=== PATIENT | female | born 1945 | race Caucasian/White ===

== ENCOUNTER 2019-03-21 16:58 | Inpatient (IN) ==
--- NOTE | 2019-03-21 17:28 | Diag Imaging Result Doc PS360 ---
EXAM: CHEST-1 VIEW 03/21/2019 HISTORY: POSSIBLE SEPSIS TECHNIQUE: Erect AP portable upright at 1716 COMMENT: There is COPD. There is blunting of the left costophrenic angle which has not changed since 07/22/2018 and is presumably due to fibrosis. The lung bases are actually clearer than on the previous study and the heart and pulmonary vascularity are within normal limits. IMPRESSION: No acute disease. Electronically signed by Cayden Olvera 03/21/2019 5:26 PM
[2019-03-21 18:09] LABS: BASO# 0.02 X1000 (0.0-0.2); BASO% 0.2 % (0.0-0.8); EOS# 0.01 X1000 (0.0-0.7); EOS% 0.1 % (0.0-10.0); HEMOGLOBIN 13.9 g/dL (12.0-16.0); IMM GRAN# 0.02 X1000 (0.0-0.04); IMM GRAN% 0.2 % (0.0-0.5); LYMPH# 0.77 X1000 (1.2-3.4); LYMPH% 8.2 % (20.5-51.1); MCH 30.5 PG (27-31); MCHC 30.9 g/dL (33-37); MCV 98.7 FL (81-99); MONO# 0.91 X1000 (0.11-0.59); MONO% 9.7 % (1.7-9.3); MPV 10.9 FL (7.4-10.4); NEUT# 7.66 X1000 (1.4-6.5); NEUT% 81.6 % (42.2-75.2); PLT 174 X1000 (130-400); RBC 4.56 XMIL (4.2-5.4); RDW 14.2 % (11.5-14.5); WBC 9.39 X1000 (4.8-10.8)
[2019-03-21 18:17] LABS: INR 1.08; PROTIME 14.1 Seconds (11.0-16.0)
[2019-03-21 18:18] LABS: PTT 31.9 Seconds (22.3-41.8)
[2019-03-21 18:22] LABS: ALLEN TEST YES; BE 9.1 mmoll (-3.0-3.0); BLOOD TYPE ARTERIAL; HCO3-(ACT) 31.9 mmoll (20.0-26.0); METHB 1.3 % (0.0-1.5); O2(CT) 19.3 mL/dL (15.0-23.0); O2HB 94.5 % (95.0-99.0); PO2(98.6) 91 mmHg (60-100); SAMPLE BLOOD; SAO2 98.2 % (95.0-100.0); THB 14.5 g/dL (11.5-17.4); URINE SOURCE CLEAN CATCH; pH(98.6) 7.36 (7.35-7.45)
[2019-03-21 18:24] LABS: MODALITY CANNULA; PCO2(98.6) 66 mmHg (35-45)
[2019-03-21 18:29] LABS: BILIRUBIN URINE SMALL (NEGATIVE); COLOR YELLOW; GLUCOSE URINE NEGATIVE (NEGATIVE); KETONE URINE TRACE mg/dL (NEGATIVE); TURBIDITY URINE HAZY (CLEAR)
[2019-03-21 18:30] LABS: BLOOD URINE SMALL (NEGATIVE); LEUKOCYTES URINE LARGE (NEGATIVE); NITRITE URINE POSITIVE (NEGATIVE); PROTEIN URINE 100 mg/dL (NEGATIVE); SP GRAVITY URINE 1.029; UROBILINOGEN URINE NORMAL (NORMAL)
[2019-03-21 18:31] LABS: UR EPITHELIAL CELLS <10 /HPF (<10); URINE BACTERIA 4+ /HPF; URINE RBC <10 /HPF (<10); URINE WBC TNTC /HPF (<10)
[2019-03-21] MEDS ORDERED: SOLU-MEDROL IV ONE (18:31)
[2019-03-21] MEDS ORDERED: DUONEB (A & A) INH ONE (18:31)
[2019-03-21] MEDS ORDERED: PULMICORT INH ONE (18:31)
[2019-03-21] MEDS ORDERED: ROCEPHIN 1 GM in NS 50 ML IV ONE (18:32)
--- NOTE | 2019-03-21 18:44 | PROVIDER DOCUMENTATION ---
This chart was entered by Andreina Krueger Scribe, acting as scribe for Tania Orellana MD. HPI-Respiratory General - General Source: patient - History of Present Illness-Resp Quality of Pain: reports: none Severity in ED: reports: mild Onset/Duration: reports: 2 days ago Timing: reports: still present Cough Quality/Degree: reports: moderate, productive cough, sputum Current Respiratory Medication Therapy: Initiated see nurses note Associated Symptoms: reports: cough, fever/chills (fever), muscle/bodyaches, sore throat Similar Symptoms Previously?: Yes Recently seen or treated by another doctor?: No <Tania Orellana - Last Filed: 03/21/19 18:48> <Betsey Ernandez - Last Filed: 03/21/19 20:41> - General Chief Complaint: SEPSIS ALERT - D Stated Complaint: COUGHING,BODYACHES Time Seen by Provider: 03/21/19 17:08 Allergies/Adverse Reactions: Patient Allergies Allergy/AdvReac Type Severity Reaction Status Date / Time Sulfa (Sulfonamide Allergy ITCHING Verified 07/22/18 00:35 Antibiotics) Home Medications: Home Medication List Medication Instructions Recorded Confirmed Last Taken Type Albuterol Sulfate Inhaler 2 puff INH Q6H PRN PRN 03/19/18 03/21/19 07/21/18 History [Ventolin Hfa] Budesonide [Pulmicort] 0.5 mg Q12H PRN 03/19/18 03/21/19 07/21/18 History Levothyroxine [Synthroid] 75 microgm PO DAILY 03/19/18 03/21/19 07/21/18 History ROSUVAstatin [Crestor] 10 mg PO QHS 03/19/18 03/21/19 07/21/18 History Sertraline [Zoloft] 250 mg PO DAILY 03/19/18 03/21/19 07/21/18 History Ergocalciferol (Vitamin D2) 50,000 unit PO DAILY 07/22/18 03/21/19 07/21/18 History [Vitamin D2] Vit C/Dl-E AC/Lut/Copper/Znox 1 each PO DAILY 07/22/18 03/21/19 07/21/18 History [Preservision Softgel] Albuterol 2.5MG/Ipratrop 0.5MG 1 inh INH BID 03/21/19 03/21/19 Unknown History [Duoneb (A & A)] Vit C/Vit E AC/Lut/Copper/Zinc 1 cap PO DAILY 03/21/19 03/21/19 Unknown History [Preservision Lutein Softgel] - History of Present Illness-Resp Nature of Presenting Problem: Patient is a 74 year old female who presents with fever, cough, sore throat and body aches. States symptoms have been present for 2 days. History of COPD. (Tania Orellana) Review of Systems - Adult - REVIEW OF SYSTEMS - ADULT Constitutional: reports: see HPI, fever. denies: chills, fatique Eyes: reports: no symptoms reported Ears, Nose, Mouth & Throat: reports: see HPI, throat pain. denies: ear pain, sinus problem Cardiovascular: reports: no symptoms reported Respiratory: reports: see HPI, cough. denies: shortness of breath, wheezing Gastrointestinal: reports: no symptoms reported Genitourinary: reports: no symptoms reported Musculoskeletal: reports: see HPI, muscle aches. denies: back pain, neck pain Integumentary: reports: no symptoms reported Neurological: reports: no symptoms reported Psychiatric: reports: no symptoms reported Endocrine: reports: no symptoms reported Hematologic/Lymphatic: reports: no symptoms reported Allergic/Immunologic: reports: no symptoms reported All Other Systems: Reviewed and Negative <Tania Orellana - Last Filed: 03/21/19 18:48> Past History - Adult - PAST MEDICAL HISTORY-ADULT Review of Records: reports: Old Records Reviewed, Nursing Assessment Review, Medications Reviewed, Social history reviewed & non-contributory. Major Childhood Illnesses: reports: denies history Cardiovascular: reports: denies history Respiratory: reports: COPD Gastrointestinal: reports: denies history Obstetrical/Gynecological: reports: denies history Genitourinary: reports: denies history Musculoskeletal: reports: denies history Neurological: reports: denies history Psychiatric: reports: depression Endocrine/Immune: reports: thyroid disorder Other Conditions: reports: denies history - PRIOR SURGERIES/PROCEDURES Surgical/Procedure History: reports: reviewed, not pertinent, hysterectomy, back/neck (back) - IMMUNIZATION STATUS Childhood Immunizations: See Nurse Assessment Flu Vaccine: See Nurse Assessment - FAMILY HISTORY Family History: reviewed, not pertinent - SOCIAL HISTORY Smoking: cigarettes (former) Substance Use: denies <EstebanEmekalaly Us - Last Filed: 03/21/19 18:48> Physical Exam-General - PHYSICAL EXAM-ADULT Initial Vital Signs Reviewed: Yes - CONSTITUTIONAL General Appearance: alert, mild distress, thin. negative: lethargic - HEAD, EARS, NOSE, MOUTH & THROAT HENMT: normocephalic/atraumatic, moist mucous membranes. negative: angioedema - RESPIRATORY Respiratory: chest non-tender, decreased breath sounds (bilateral), crackles, rhonchi - CARDIOVASCULAR Cardiovascular: normal peripheral pulses, tachycardia. negative: systolic murmur - GASTROINTESTINAL (ABDOMEN) Abdominal Exam: normal bowel sounds, non tender, soft. negative: guarding, rebound - SKIN Integumentary: normal color, normal turgor, warm/dry. negative: diaphoresis, pallor - NEUROLOGIC Neurologic: grossly normal. negative: aphasia, facial droop - PSYCHIATRIC Psych/Mental Status: normal mood/affect, oriented x 3. negative: anxious <EstebanTania Us - Last Filed: 03/21/19 18:48> Progress - PLAN OF CARE/RESULTS Result Diagrams: 03/21/19 17:30 03/21/19 17:30 - XRAY 1 XRAY Study: Chest Impression: See EMR Report ( EXAM: CHEST-1 VIEW 03/21/2019 HISTORY: POSSIBLE S EPSIS TECHNIQUE: Erect AP portable upright at 1716 COMMENT: There is COPD. There is blunting of the left costophrenic angle which has not changed since 07/22/2018 and is presumably due to fibrosis. The lung bases are actually clearer than on the previous study and the heart and pulmonary vascularity are within normal limits. IMPRESSION: No acute disease. Electronically signed by Cayden Olvera 03/21/2019 5:26 PM 03/21/19 1726 Interpreting Physician: Cayden Olvera MD Dictated Date/Time: 03/21/19 1725 cc: Tania Orellana MD; Cate Laughlin MD) - CHANGE OF SHIFT REPORT (ED Provider) 1 Report Given and Care Transferred to:: DR ERNANDEZ Time of Transfer: 19:00 Items Pending: Other (HOSPITALIST TO CALL TO ADMIT) <EstebanTania Us - Last Filed: 03/21/19 18:48> - PLAN OF CARE/RESULTS Result Diagrams: 03/21/19 17:30 03/21/19 17:30 - CONSULTS/PCP/HOSPITALIST Notification #1 *Consult/PCP/Hospitalist*: d/w Dr Esposito Time Discussed: 20:36 Consult Disposition: Will see in ED, Admit <Betsey ErnandezJuan Carlos - Last Filed: 03/21/19 20:41> - PLAN OF CARE/RESULTS Progress/Plan/Lab Results: Vital Signs - 8 hr 03/21/19 17:03 03/21/19 18:40 Temperature 99.1 F Pulse Rate 99 H 88 Respiratory Rate 22 22 Blood Pressure 124/63 O2 Sat by Pulse Oximetry 87 L 96 Laboratory Results - last 24 hr 03/21/19 03/21/19 03/21/19 17:30 17:30 17:30 WBC 9.39 RBC 4.56 Hgb 13.9 Hct 45.0 MCV 98.7 MCH 30.5 MCHC 30.9 L RDW Std Deviation 14.2 Plt Count 174 MPV 10.9 H Immature Gran % (Auto) 0.2 Neut % (Auto) 81.6 H Lymph % (Auto) 8.2 L [place] % (Auto) 9.7 H Eos % (Auto) 0.1 Baso % (Auto) 0.2 Immature Gran # (Auto) 0.02 Neut # (Auto) 7.66 H Lymph # (Auto) 0.77 L [place] # (Auto) 0.91 H Eos # (Auto) 0.01 Baso # (Auto) 0.02 PT INR PTT (Actin FS) Specimen Type Sample Site pH pCO2 pO2 HCO3 Base Excess Oxyhemoglobin ABG O2 Sat (Calculated) ABG O2 Saturation ABG Carboxyhemoglobin ABG Methemoglobin Kevon Test A-a O2 Difference Total Hemoglobin Lactate Liter Flow Blood Gas Modality FiO2 % Sodium 139 Potassium 3.5 Chloride 95 L Carbon Dioxide 30 Anion Gap 14 BUN 20 Creatinine 0.9 Estimated GFR/1.73 m2 > 60 BUN/Creatinine Ratio 22 Glucose 105 H Calculated Osmolality 281 Calcium 8.5 L Total Bilirubin 0.41 AST 32 H ALT 14 Alkaline Phosphatase 102 Creatine Kinase 525 H Creatine Kinase Index 0.8 CK-MB (CK-2) 4.28 Troponin T Total Protein 6.4 Albumin 3.9 Globulin 2.5 Albumin/Globulin Ratio 1.6 Plasma Lactate 0.9 Urine Source Urine Color Urine Turbidity Urine pH Ur Specific [place] Urine Protein Ur Glucose (Stick) Ur Ketones (Stick) Urine Blood Urine Nitrite Urine Bilirubin Urobilinogen Dipstick Urine Leukocytes Urine WBC (Auto) Urine RBC (Auto) U Epithel Cells (Auto) Urine Bacteria (Auto) 03/21/19 03/21/19 03/21/19 17:30 17:30 18:07 WBC RBC Hgb Hct MCV MCH MCHC RDW Std Deviation Plt Count MPV Immature Gran % (Auto) Neut % (Auto) Lymph % (Auto) [place] % (Auto) Eos % (Auto) Baso % (Auto) Immature Gran # (Auto) Neut # (Auto) Lymph # (Auto) [place] # (Auto) Eos # (Auto) Baso # (Auto) PT 14.1 INR 1.08 PTT (Actin FS) 31.9 Specimen Type ARTERIAL Sample Site R RADIAL pH 7.36 pCO2 66 H* pO2 91 HCO3 31.9 H Base Excess 9.1 H Oxyhemoglobin 94.5 L ABG O2 Sat (Calculated) 19.3 ABG O2 Saturation 98.2 ABG Carboxyhemoglobin 2.40 ABG Methemoglobin 1.3 Kevon Test YES A-a O2 Difference 83.0 Total Hemoglobin 14.5 Lactate 0.80 Liter Flow 4.0 Blood Gas Modality CANNULA FiO2 % 36.0 Sodium Potassium Chloride Carbon Dioxide Anion Gap BUN Creatinine Estimated GFR/1.73 m2 BUN/Creatinine Ratio Glucose Calculated Osmolality Calcium Total Bilirubin AST ALT Alkaline Phosphatase Creatine Kinase Creatine Kinase Index CK-MB (CK-2) Troponin T < 0.010 Total Protein Albumin Globulin Albumin/Globulin Ratio Plasma Lactate Urine Source Urine Color Urine Turbidity Urine pH Ur Specific [place] Urine Protein Ur Glucose (Stick) Ur Ketones (Stick) Urine Blood Urine Nitrite Urine Bilirubin Urobilinogen Dipstick Urine Leukocytes Urine WBC (Auto) Urine RBC (Auto) U Epithel Cells (Auto) Urine Bacteria (Auto) 03/21/19 03/21/19 18:07 20:09 WBC RBC Hgb Hct MCV MCH MCHC RDW Std Deviation Plt Count MPV Immature Gran % (Auto) Neut % (Auto) Lymph % (Auto) [place] % (Auto) Eos % (Auto) Baso % (Auto) Immature Gran # (Auto) Neut # (Auto) Lymph # (Auto) [place] # (Auto) Eos # (Auto) Baso # (Auto) PT INR PTT (Actin FS) Specimen Type Sample Site pH pCO2 pO2 HCO3 Base Excess Oxyhemoglobin ABG O2 Sat (Calculated) ABG O2 Saturation ABG Carboxyhemoglobin ABG Methemoglobin Kevon Test A-a O2 Difference Total Hemoglobin Lactate Liter Flow Blood Gas Modality FiO2 % Sodium Potassium Chloride Carbon Dioxide Anion Gap BUN Creatinine Estimated GFR/1.73 m2 BUN/Creatinine Ratio Glucose Calculated Osmolality Calcium Total Bilirubin AST ALT Alkaline Phosphatase Creatine Kinase Creatine Kinase Index CK-MB (CK-2) Troponin T Total Protein Albumin Globulin Albumin/Globulin Ratio Plasma Lactate 0.6 Urine Source CLEAN CATCH Urine Color YELLOW Urine Turbidity HAZY Urine pH 6.0 Ur Specific [place] 1.029 Urine Protein 100 A Ur Glucose (Stick) NEGATIVE Ur Ketones (Stick) TRACE A Urine Blood SMALL A Urine Nitrite POSITIVE A Urine Bilirubin SMALL A Urobilinogen Dipstick NORMAL Urine Leukocytes LARGE A Urine WBC (Auto) TNTC A Urine RBC (Auto) <10 U Epithel Cells (Auto) <10 Urine Bacteria (Auto) 4+ Orders Category Date Time Status Cardiac Monitoring DIRECTED Care 03/21/19 17:06 Active IV Insertion ORDERED Care 03/21/19 17:06 Completed Notify MD of + Sepsis Screen NOW Care 03/21/19 17:06 Active Notify Physician As Ordered Care 03/21/19 17:06 Active Notify Physician As Ordered Care 03/21/19 17:25 Active Regular Diet Diet 03/21/19 19:13 Active CHEST-1 VIEW [RAD] Stat Exams 03/21/19 17:06 Completed ABG [RESP] Routine Lab 03/21/19 18:07 Completed BLOOD CULTURE [BLDCUL] Stat Lab 03/21/19 17:30 Results CBC WITH DIFF [HEME] Stat Lab 03/21/19 17:30 Completed CK PROFILE [SP CHEM] Stat Lab 03/21/19 17:30 Completed COMPREHENSIVE METABOLIC PANEL [CHEM] Stat Lab 03/21/19 17:30 Completed LACTATE, PLASMA [CHEM] Lab 03/21/19 17:30 Completed LACTATE, PLASMA [CHEM] Lab 03/21/19 20:09 Completed LACTATE, PLASMA [CHEM] Lab 03/21/19 23:15 Uncollected PROTIME WITH INR [COAG] Stat Lab 03/21/19 17:30 Completed PTT [COAG] Stat Lab 03/21/19 17:30 Completed TROPONIN T Stat Lab 03/21/19 17:30 Completed URINALYSIS W/POSS RFLX CULT [URINALYSIS] Stat Lab 03/21/19 18:07 Completed URINE CULTURE [RM] Routine Lab 03/21/19 18:45 Received Albuterol 2.5MG/Ipratrop 0.5MG [Duoneb (A & A)] Med 03/21/19 18:31 Disc ontinued 3 ml INH NOW ONE Budesonide [Pulmicort] Med 03/21/19 18:31 Discontinued 0.5 mg INH NOW ONE CefTRIAXONE [Rocephin] 1 gm Med 03/21/19 18:32 Discontinued 0.9% Sodium Chloride Inj [Ns] 50 ml IV NOW Methylprednisolone Sod Succ [Solu-Medrol] Med 03/21/19 18:31 Discontinued 125 mg IV NOW ONE Aerosol Treatments Routine Oth 03/21/19 18:31 Completed Aerosol Treatments Routine Oth 03/21/19 18:31 Completed Aerosol Treatments Stat Oth 03/21/19 18:31 Completed Aerosol Treatments Stat Oth 03/21/19 18:31 Completed Oxygen Device Stat Oth 03/21/19 17:06 Completed Oxygen Device Stat Oth 03/21/19 17:25 Completed Departure - Departure Date of Disposition Decision: 03/21/19 - Critical Care Note This patient required my direct & personal management of CC.: No <EstebanTanialaly Us - Last Filed: 03/21/19 18:48> - Departure Time of Disposition Decision: 20:39 Certified Medical Emergency: Emergent <Betsey Ernandez - Last Filed: 03/21/19 20:41> - Departure DIAGNOSIS: COPD (chronic obstructive pulmonary disease), SOB (shortness of breath) Disposition: ADMITTED INPATIENT 09 Condition: Stable Additional Instructions: ED Follow Up Instructions: You have been treated by a care provider in the Emergency Department. These instructions are being provided to you so you can have an understanding of how to care for yourself upon discharge. Upon discharge from the Emergency Department, you are responsible for making arrangements for follow-up care by a physician of your choice. Take all prescribed medications as directed. Return to the Emergency Department immediately for any new or worsening symptoms. You may call the Physician Referral phone number at [phone] to obtain a list of Physicians who are taking new patients. Referrals and Follow-Ups: Cate Laughlin MD [Primary Care Provider] - Discharge Education: Chronic Obstructive Pulmonary Disease, [id number] Attestation - Physician/ AMY Attestation Patient care was provided by Advanced Practice Provider:: No The physician spent face to face time with patient:: Yes Advanced Practice Provider documentation review:: Supervising physician onsite and consulted in the evaluation and care of this patient. The physician did have a face to face encounter with the patient. <Tania Orellana - Last Filed: 03/21/19 18:48> - Physician/ AMY Attestation Patient care was provided by Advanced Practice Provider:: Yes Advanced Practice Provider documentation review:: The Mid-level provider documentation, treatment plan and medical decision making was reviewed by the physician who agrees with all treatment and medical decision making by the MLP. <Betsey Ernandez - Last Filed: 03/21/19 20:41> This chart was documented by the indicated scribe, (Andreina Krueger Scribe) and accurately reflects the services I performed and decisions made by Esteban quezada Mai Huu, MD, as attested by the provider's signature.
[2019-03-21 18:45] LABS: AGAP 14; ALB/GLOB RATIO 1.6; ALBUMIN 3.9 g/dL (3.5-5.0); ALKALINE PHOSPHATASE 102 U/L (32-104); BUN 20 mg/dL (8-22); CALCIUM 8.5 mg/dL (8.8-10.2); CHLORIDE 95 mmol/L (98-107); COSMO 281; CREATININE 0.9 mg/dL (0.5-0.9); ESTIMATED GFR > 60; GLUCOSE 105 mg/dL (70-104); GOT 32 U/L (10-30); GPT 14 U/L (10-36); POTASSIUM 3.5 mmol/L (3.5-5.1); SODIUM 139 mmol/L (136-145); TCO2 30 mmol/L (25-35); TOTAL BILIRUBIN 0.41 mg/dL (0.20-1.00); TOTAL PROTEIN 6.4 g/dL (6.3-8.3)
[2019-03-21 18:50] LABS: CK PROFILE 525 U/L (24-173)
[2019-03-21 19:04] LABS: CK INDEX 0.8 (0.0-2.5); CK-MB 4.28 ng/mL (0.0-5.0)
--- NOTE | 2019-03-21 21:57 | HISTORY AND PHYSICAL ---
REASON FOR ADMISSION: A 2-week history of worsening shortness of breath and cough. HISTORY OF PRESENT ILLNESS: Ms. Dorothy Raymond is a 74-year-old woman, with past medical history of COPD, hyperlipidemia, hypothyroidism, who comes in today complaining of worsening 2 week history of shortness of breath, initially with exertion, but currently over the last 1 week at rest. Her cough is nonproductive, but states that she is also having fever and chills subjective over the last few days. No leg swelling, PND, orthopnea. She denies any or GI complaints. REVIEW OF SYSTEMS: Negative for any chest pain, any palpitation, or anginal-type symptoms. Positive findings noted as noted as above. No recent exposure to any antibiotics. ALLERGIES: Sulfa. HOME MEDICATIONS: She is on: 1. Crestor 10 mg at bedtime. 2. DuoNeb b.i.d. 3. Nadir vitamin tablets once daily. 4. Pulmicort 0.5 mg q.12 p.r.n. 5. Synthroid 75 mcg daily. 6. Ventolin 2 puffs q.6. 7. Vitamin D 50,000 units weekly. 8. Zoloft 50 mg daily. SURGICAL HISTORY: 1. Hysterectomy. 2. Bladder sling surgery. 3. Basal cell excision. 4. Carpal tunnel surgery. 5. Back surgery. SOCIAL HISTORY: Former smoker, but currently does not smoke, drink, or use drugs. FAMILY HISTORY: Notable for heart disease, stroke, type 2 diabetes, lung cancer. LAB WORK: Patient's chest film shows no acute infiltrate. White count 5000, hemoglobin and hematocrit 13 and 45, platelets 174,000, 81% neutrophils. Potassium 3.5. AST 32, ALT 14. CK 525. Troponins negative. Lactate is normal. PT and PTT is normal. Urinalysis: 4+ bacteria, too numerous to count WBCs. PH 7.37, pCO2 66, pO2 91. This is on 4 L, although patient states he uses 2 L at home. PHYSICAL EXAMINATION: VITAL SIGNS: Blood pressure is 124/64, heart rate 80, respirations 22, temperature is 99.1 degrees. She is 96% on 4 L. GENERAL: She is a thin, elderly woman, not in acute distress. She is awake, alert and oriented x3. Normal mood and affect. HEAD: Normocephalic, atraumatic. EYES: PERRL. EOMI. Anicteric. Not pale. ENT: Positive for mild xerostomia, but no exudates or oral erythema. NECK: Supple. No JVD or carotid bruit. No thyromegaly. No cervical or supraclavicular lymph nodes. CHEST: Decreased entry in both lung keys with noticeable right basilar crepitations. CARDIOVASCULAR: First and second sounds heard. No murmur, gallop, or rub. Rhythm is regular. ABDOMEN: Full, soft, nontender. No megaly. Bowel sounds are normal. RECTAL: Deferred at this time. EXTREMITIES: Patient has good distal pulse volume, regular and symmetrical. No edema, clubbing or cyanosis. NEUROLOGIC: No gross focal deficits. SKIN: Intact. No breakdown, lesion, or erythema. Skin exam is grossly normal. ASSESSMENT: 1. Chronic obstructive pulmonary disease exacerbation with possible right lower lobe pneumonia. 2. Acute on chronic respiratory failure. 3. Hyperlipidemia. 4. Hypothyroidism. 5. Asymptomatic bacteriuria. PLAN: 1. Will start patient empirically on Zithromax and Rocephin pending noncontrast CT scan to rule out right lower lobe pneumonia. 2. Start patient on moderate doses of steroids, short action bronchodilators, and long-acting bronchodilators, and expectorants will also be started. 3. Reviewed patient's home medications and made certain adjustments to them. 4. Patient will have deep venous thrombosis prophylaxis amongst other things. 5. Titrate downward the home oxygen as long as long oxygen saturation is 90 or greater. cc: MD Cate De Souza MD
[2019-03-21] MEDS ORDERED: ZOFRAN IV PRN (22:34)
[2019-03-21] MEDS: DUONEB (A & A) INH SCH (23:03)
[2019-03-21 23:23] LABS: BASO# 0.01 X1000 (0.0-0.2); BASO% 0.1 % (0.0-0.8); HEMATOCRIT 44.4 % (37.0-47.0); HEMOGLOBIN 13.6 g/dL (12.0-16.0); LYMPH# 0.42 X1000 (1.2-3.4); LYMPH% 4.4 % (20.5-51.1); MCH 30.8 PG (27-31); MCHC 30.6 g/dL (33-37); MCV 100.5 FL (81-99); MONO# 0.13 X1000 (0.11-0.59); MONO% 1.4 % (1.7-9.3); MPV 10.6 FL (7.4-10.4); NEUT# 8.99 X1000 (1.4-6.5); NEUT% 94.1 % (42.2-75.2); PLT 169 X1000 (130-400); RBC 4.42 XMIL (4.2-5.4); RDW 14.1 % (11.5-14.5); WBC 9.55 X1000 (4.8-10.8)
[2019-03-21] MEDS: SOLU-MEDROL IV SCH (23:37)
[2019-03-21] MEDS: ROCEPHIN 1 GM in NS 50 ML IV SCH (23:38)
[2019-03-21] MEDS: LOVENOX SUBQ SCH (23:38)
[2019-03-21] MEDS: MUCINEX PO SCH (23:45)
[2019-03-22 00:06] LABS: AGAP 12; ALB/GLOB RATIO 1.7; ALBUMIN 3.8 g/dL (3.5-5.0); ALKALINE PHOSPHATASE 99 U/L (32-104); BUN 20 mg/dL (8-22); CALCIUM 8.4 mg/dL (8.8-10.2); CHLORIDE 96 mmol/L (98-107); CK PROFILE 430 U/L (24-173); COSMO 288; CREATININE 0.8 mg/dL (0.5-0.9); ESTIMATED GFR > 60; GLUCOSE 204 mg/dL (70-104); GOT 31 U/L (10-30); GPT 14 U/L (10-36); POTASSIUM 3.7 mmol/L (3.5-5.1); SODIUM 140 mmol/L (136-145); TCO2 32 mmol/L (25-35); TOTAL BILIRUBIN 0.19 mg/dL (0.20-1.00); TOTAL PROTEIN 6.1 g/dL (6.3-8.3)
[2019-03-22 00:24] LABS: CK INDEX 0.9 (0.0-2.5); CK-MB 3.78 ng/mL (0.0-5.0)
[2019-03-22] MEDS: DUONEB (A & A) INH SCH ×6 (03:22→23:09)
[2019-03-22 05:32] LABS: AGAP 13; BUN 19 mg/dL (8-22); CALCIUM 9.2 mg/dL (8.8-10.2); CHLORIDE 95 mmol/L (98-107); COSMO 284; CREATININE 0.7 mg/dL (0.5-0.9); ESTIMATED GFR > 60; GLUCOSE 175 mg/dL (70-104); POTASSIUM 4.1 mmol/L (3.5-5.1); SODIUM 139 mmol/L (136-145); TCO2 31 mmol/L (25-35)
--- NOTE | 2019-03-22 05:52 | Diag Imaging Result Doc PS360 ---
EXAM: CT THORAX W/O CONTRAST HISTORY: Probable RLL PNA TECHNIQUE: CT chest without contrast COMPARISON: 02/11/2015 FINDINGS: No pleural effusions. Tiny pericardial effusion. No aortic aneurysm. Moderate atherosclerosis. There calcified mediastinal and right hilar lymph nodes with scattered granuloma. Mildly prominent noncalcified precarinal lymph nodes. Moderate emphysematous changes. Atelectasis inferiorly in the lower lobes, right greater than left. Questionable tiny infiltrates in the right lower lobe. IMPRESSION: 1.Emphysema 2.With basilar atelectasis 3.Possible small infiltrates in the right lower lobe 4.Tiny pericardial effusion 5.There is evidence of a prior granulomatous infection 6.A preliminary report was given at 11:41 PM on 03/21/2019 This exam was performed using automated exposure control, adjustment of mA or kV according to patient size, and/or use of iterative reconstruction technique. Electronically signed by Jose F Prabhakar 03/22/2019 5:50 AM
[2019-03-22] MEDS: SYNTHROID PO SCH (06:21)
[2019-03-22] MEDS: SOLU-MEDROL IV SCH ×3 (09:05→21:09)
[2019-03-22] MEDS: ZITHROMAX PO SCH (09:21)
[2019-03-22] MEDS: ZOLOFT PO SCH (09:21)
[2019-03-22] MEDS: MUCINEX PO SCH ×2 (09:21→21:08)
[2019-03-22] MEDS: BROVANA NEB INH SCH ×3 (09:51→20:26)
--- NOTE | 2019-03-22 12:57 | PROGRESS NOTE ---
DATE: 03/22/2019 ADDENDUM: Advanced directives have been discussed with the patient and the family member at the bedside. After a 15 to 18 minute discussion, the patient has decided to be Do Not Resuscitate level 1. This has been placed already in the chart by me. cc: Carlos Bosch MD
--- NOTE | 2019-03-22 13:11 | PROGRESS NOTE ---
DATE: 03/22/2019 SUBJECTIVE: The patient feels a bit better but she is still having shortness of breath. She is on home O2 for chronic hypoxemic respiratory failure. She came in with COPD exacerbation, right lower lung pneumonia. Her COPD seems to be quite advanced, she stopped smoking in 1994. 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 Apparently 2 weeks ago, she started having some runny nose and cough, now she has been having some chills and subjective fever. As per the daughter, she has been losing weight, about 10 pounds in the past 2 months, she does have severe protein calorie malnutrition. OBJECTIVE: Vital Signs: Temperature 97.9 degrees, pulse 65, respiratory rate 21, blood pressure 122/70, oxygen saturation 96 on 3 L of nasal cannula. HEENT: Head normocephalic, no trauma. PERRLA. Neck: Supple. No JVD. No masses. Central trachea. Chest: Decreased breath sounds globally with right basilar crepitus/rhonchi and expiratory wheezing. Abdomen: Soft, nontender, nondistended. No hepatosplenomegaly. Extremities: No edema, no clubbing, no cyanosis. Decreased muscle mass. Neurological: The patient is alert, she is oriented x3. No focal deficits. LABORATORY DATA: Sodium 139, potassium 4.1, chloride 95, bicarbonate 31, BUN 19, creatinine 0.7, glucose 175, calcium 9.2. ASSESSMENT AND PLAN: 1. Chronic obstructive pulmonary disease exacerbation. Continue with the same management. She has been placed on steroids, breathing treatment and antibiotics, oxygen supplementation. We will continue to monitor. 2. Acute on chronic hypoxemic and hypercarbic respiratory failure. Aware. She is on home O2 I believe around 3 L. We will monitor. 3. Right lower lobe pneumonia. Continue with antibiotics at this moment. 4. Hyperlipidemia. Aware. Continue with same management. 5. Hypothyroidism. Continue with same treatment. 6. Asymptomatic bacteriuria. We will monitor. 7. Severe protein calorie malnutrition. Continue with the same diet. cc: Carlos Bosch MD
[2019-03-22] MEDS: CRESTOR PO SCH (21:08)
[2019-03-22] MEDS: LOVENOX SUBQ SCH (21:09)
[2019-03-22] MEDS: ROCEPHIN 1 GM in NS 50 ML IV SCH (22:49)
[2019-03-23] MEDS: DUONEB (A & A) INH SCH ×5 (03:28→23:29)
[2019-03-23 05:22] LABS: HEMATOCRIT 40.9 % (37.0-47.0); HEMOGLOBIN 12.5 g/dL (12.0-16.0); LYMPH# 0.88 X1000 (1.2-3.4); LYMPH% 10.2 % (20.5-51.1); MCH 30.6 PG (27-31); MCHC 30.6 g/dL (33-37); MONO# 0.62 X1000 (0.11-0.59); MONO% 7.2 % (1.7-9.3); MPV 10.8 FL (7.4-10.4); NEUT# 7.12 X1000 (1.4-6.5); NEUT% 82.6 % (42.2-75.2); PLT 182 X1000 (130-400); RBC 4.09 XMIL (4.2-5.4); RDW 13.7 % (11.5-14.5); WBC 8.62 X1000 (4.8-10.8)
[2019-03-23 05:47] LABS: AGAP 8; BUN 14 mg/dL (8-22); CALCIUM 9.3 mg/dL (8.8-10.2); CHLORIDE 98 mmol/L (98-107); COSMO 283; CREATININE 0.7 mg/dL (0.5-0.9); ESTIMATED GFR > 60; GLUCOSE 122 mg/dL (70-104); POTASSIUM 3.9 mmol/L (3.5-5.1); SODIUM 141 mmol/L (136-145); TCO2 35 mmol/L (25-35)
[2019-03-23] MEDS: LOVENOX SUBQ SCH ×2 (05:54→23:09)
[2019-03-23] MEDS: SOLU-MEDROL IV SCH ×3 (05:55→23:09)
[2019-03-23] MEDS: SYNTHROID PO SCH ×2 (05:56→08:37)
[2019-03-23] MEDS: ZOLOFT PO SCH (09:55)
[2019-03-23] MEDS: MUCINEX PO SCH ×2 (09:55→22:05)
[2019-03-23] MEDS: ZITHROMAX PO SCH (09:55)
[2019-03-23] MEDS: BROVANA NEB INH SCH ×2 (11:26→19:34)
--- NOTE | 2019-03-23 16:18 | PROGRESS NOTE ---
DATE: 03/23/2019 SUBJECTIVE: The patient feels a bit better compared with yesterday. She is still wheezing, so I will continue with the steroids, she has a positive urine culture and blood culture, urine culture showed Klebsiella pneumonia. Blood culture x2 showed gram-negative rods. She has been placed on ceftriaxone and azithromycin, and she seems to be doing good. OBJECTIVE: Vital Signs: Temperature 97.6 degrees, pulse 77, respiratory rate 14, blood pressure 126/58, oxygen saturation 98 on 3 L of nasal cannula. HEENT: Head normocephalic, no trauma, PERRLA. Neck: Supple. No JVD. No masses. Central trachea. Chest: Coarse breath sounds bilaterally with end-expiratory wheezing. Decreased breath sounds bilaterally as well. Prolonged expiratory phase. Abdomen: Soft, nontender, nondistended. No hepatosplenomegaly. Extremities: No edema, no clubbing, no cyanosis. Neurological: The patient is alert. She is oriented x3. No focal deficits. LABORATORY: WBC 8.6, hemoglobin 12.5, hematocrit 40.9, platelets 182,000, sodium 141, potassium 3.9, chloride 98, bicarbonate 35, BUN 14, creatinine 0.9, glucose 122, calcium 9.3. ASSESSMENT AND PLAN: 1. COPD exacerbation. Continue with same management. She has been placed on steroids, breathing treatment, antibiotics, O2 supplementation. Continue to monitor. 2. Bacteremia with gram-negative rods, she is not having fever or chills. She has been placed on ceftriaxone and azithromycin and probably the ceftriaxone is covering this bug, we will continue with the same management for now since she has been stable and the vital signs are stable as well. 3. Acute on chronic hypoxemic and hypercarbic respiratory failure. Aware. She is on home O2 around 3 L. We will continue to monitor. 4. Right lower lobe pneumonia. Continue with antibiotics at this moment pending sputum culture. 5. Hyperlipidemia aware. 6. Hypothyroidism, continue with same treatment. 7. Asymptomatic bacteriuria and actually is secondary to Klebsiella pneumonia sensitive to cephalosporin. 8. Severe protein calorie malnutrition, as per the daughter she has been losing weight for the past 2 months, around 10 pounds unintentionally. cc: Carlos Bosch MD
[2019-03-23] MEDS: CRESTOR PO SCH (22:05)
[2019-03-23] MEDS: ROCEPHIN 1 GM in NS 50 ML IV SCH (23:09)
[2019-03-24] MEDS: DUONEB (A & A) INH SCH ×4 (03:07→22:40)
[2019-03-24 06:16] LABS: BASO# 0.01 X1000 (0.0-0.2); BASO% 0.1 % (0.0-0.8); HEMATOCRIT 43.3 % (37.0-47.0); HEMOGLOBIN 12.8 g/dL (12.0-16.0); LYMPH# 0.61 X1000 (1.2-3.4); LYMPH% 7.7 % (20.5-51.1); MCH 30.3 PG (27-31); MCHC 29.6 g/dL (33-37); MCV 102.6 FL (81-99); MONO# 0.43 X1000 (0.11-0.59); MONO% 5.4 % (1.7-9.3); MPV 10.4 FL (7.4-10.4); NEUT# 6.87 X1000 (1.4-6.5); NEUT% 86.8 % (42.2-75.2); PLT 196 X1000 (130-400); RBC 4.22 XMIL (4.2-5.4); WBC 7.92 X1000 (4.8-10.8)
[2019-03-24] MEDS: SYNTHROID PO SCH (06:17)
[2019-03-24 06:23] LABS: AGAP 10; BUN 21 mg/dL (8-22); CALCIUM 8.8 mg/dL (8.8-10.2); CHLORIDE 99 mmol/L (98-107); COSMO 290; CREATININE 0.6 mg/dL (0.5-0.9); ESTIMATED GFR > 60; GLUCOSE 138 mg/dL (70-104); POTASSIUM 4.2 mmol/L (3.5-5.1); SODIUM 143 mmol/L (136-145); TCO2 34 mmol/L (25-35)
[2019-03-24] MEDS: BROVANA NEB INH SCH ×2 (09:32→22:40)
[2019-03-24] MEDS: ZOLOFT PO SCH (11:17)
[2019-03-24] MEDS: SOLU-MEDROL IV SCH ×2 (11:17→22:35)
[2019-03-24] MEDS: ZITHROMAX PO SCH (11:17)
[2019-03-24] MEDS: MUCINEX PO SCH ×2 (11:17→21:28)
--- NOTE | 2019-03-24 11:47 | PROGRESS NOTE ---
DATE: 03/24/2019 SUBJECTIVE: As per the patient, she is feeling a bit better. I am still waiting for the sputum culture. I will continue with the steroids. She has a positive culture in the urine and blood that showed Klebsiella pneumonia sensitive to cephalosporin. I will continue with ceftriaxone. I have requested a new blood culture today. I will follow the results. OBJECTIVE: Vital signs: Temperature 98.2 degrees, pulse 86, respiratory rate 16, blood pressure 155/66, oxygen saturation 96% on 2 L of nasal cannula. HEENT: Head normocephalic, no trauma. PERRLA. Neck: Supple. No JVD. No masses. Central trachea. Chest: Coarse breath sounds bilaterally, with end-expiratory wheezing, decreased breath sounds bilaterally. Prolonged expiratory phase and bilateral rhonchi. Abdomen: Soft, nontender, nondistended. No hepatosplenomegaly. Extremities: No edema. No clubbing. No cyanosis. Neurologic: The patient is alert. She is oriented x3. No focal deficits. LABORATORY: WBC 7.9, hemoglobin 12.8, hematocrit 43.3, platelets 196,000. Sodium 143, potassium 4.2, chloride 99, bicarbonate 34, BUN 21, creatinine 0.6, glucose 138, calcium 8.8. ASSESSMENT AND PLAN: 1. COPD exacerbation. Continue with same management. She is on steroids, breathing treatment, antibiotics, oxygen supplementation, pulmonary toilet. 2. Klebsiella pneumonia bacteremia. Continue with antibiotics. I have repeated the blood culture today. We will monitor. 3. Urinary tract infection due to Klebsiella pneumonia as well. She is basically asymptomatic. 4. Right lower lobe pneumonia. Continue with antibiotics, pending a sputum culture. 5. Acute on chronic hypoxemic and hypercarbic respiratory failure, aware. She is on home O2 around 3 L. We will continue with the same management for now. 6. Hypothyroidism. Continue with the same management. 7. Hyperlipidemia. Aware. 8. Severe protein calorie malnutrition. As per the daughter, she has been losing weight, at least 10 pounds in the last couple of months. cc: Carlos Bosch MD
[2019-03-24] MEDS: CRESTOR PO SCH (21:28)
[2019-03-24] MEDS: LOVENOX SUBQ SCH (22:35)
[2019-03-24] MEDS: ROCEPHIN 1 GM in NS 50 ML IV SCH (22:35)
[2019-03-25 05:08] LABS: BASO# 0.01 X1000 (0.0-0.2); BASO% 0.2 % (0.0-0.8); HEMATOCRIT 41.6 % (37.0-47.0); HEMOGLOBIN 12.3 g/dL (12.0-16.0); LYMPH# 0.92 X1000 (1.2-3.4); LYMPH% 14.2 % (20.5-51.1); MCH 30.3 PG (27-31); MCHC 29.6 g/dL (33-37); MCV 102.5 FL (81-99); MONO# 0.39 X1000 (0.11-0.59); MPV 10.1 FL (7.4-10.4); NEUT# 5.14 X1000 (1.4-6.5); NEUT% 79.6 % (42.2-75.2); PLT 213 X1000 (130-400); RBC 4.06 XMIL (4.2-5.4); RDW 13.8 % (11.5-14.5); WBC 6.46 X1000 (4.8-10.8)
[2019-03-25 05:28] LABS: AGAP 9; BUN 15 mg/dL (8-22); CALCIUM 9.1 mg/dL (8.8-10.2); CHLORIDE 100 mmol/L (98-107); COSMO 288; CREATININE 0.5 mg/dL (0.5-0.9); ESTIMATED GFR > 60; GLUCOSE 109 mg/dL (70-104); POTASSIUM 4.1 mmol/L (3.5-5.1); SODIUM 144 mmol/L (136-145); TCO2 35 mmol/L (25-35)
[2019-03-25] MEDS: DUONEB (A & A) INH SCH ×4 (05:28→22:50)
[2019-03-25] MEDS: SYNTHROID PO SCH (06:38)
[2019-03-25] MEDS: ZOLOFT PO SCH (10:02)
[2019-03-25] MEDS: SOLU-MEDROL IV SCH ×2 (10:02→22:30)
[2019-03-25] MEDS: MUCINEX PO SCH ×2 (10:02→22:31)
[2019-03-25] MEDS: BROVANA NEB INH SCH ×2 (10:28→22:50)
[2019-03-25] MEDS ORDERED: DULCOLAX PR ONE (11:43)
--- NOTE | 2019-03-25 13:55 | PROGRESS NOTE ---
DATE: 03/25/2019 SUBJECTIVE: As per the patient, she is feeling better. Her second blood culture has been negative so far. I will recheck on that tomorrow. She has a blood culture and urine culture that showed Klebsiella pneumonia sensitive to cephalosporin. She is on ceftriaxone, and I will continue with that. She seems to be getting better. No fever during this hospitalization. Blood pressure stable. She is still on oxygen, but she is on home O2 as well. OBJECTIVE: Vital Signs: Temperature 97.8 degrees, pulse 80, respiratory rate 14, blood pressure 133/55. Oxygen saturation 91% on 3 L of nasal cannula. HEENT: Head normocephalic, no trauma. PERRLA. Neck: Supple. No JVD. No masses. Central trachea. Chest: Coarse breath sounds bilaterally with end expiratory wheezing. Decreased breath sounds bilaterally as well. Prolonged expiratory phase. Some rhonchi scattered. Abdomen: Soft, nontender, nondistended. No hepatosplenomegaly. Extremities: No edema, no clubbing, no cyanosis. Decreased muscle mass. Neurological: This patient is alert. She is oriented x3. No focal deficits. LABORATORY: WBC 6.4, hemoglobin 12.3, hematocrit 41.6, platelets 213,000. Sodium 144, potassium 4.1, chloride 100, bicarbonate 35, BUN 15, creatinine 0.5, glucose 109, calcium 9.1. ASSESSMENT AND PLAN: 1. Chronic obstructive pulmonary disease exacerbation. Continue with same management. She is on steroids, breathing treatment, antibiotics, oxygen supplementation, pulmonary toilet. She seems to be better in that regard. 2. Klebsiella pneumoniae bacteremia. Continue antibiotics. Repeated blood culture negative so far. We will continue to monitor. 3. Urinary tract infection due to Klebsiella pneumonia as well. Basically she is asymptomatic. 4. Right lower lobe pneumonia. Continue antibiotics. A sputum culture has been negative so far. 5. Acute on chronic hypoxemic and hypercarbic respiratory failure, stable. She is on home O2 around 3 L. We will continue with same management for now. 6. Hypothyroidism. Continue with same management. 7. Hyperlipidemia. Aware. 8. Severe protein calorie malnutrition. As per the patient, she has been losing some weight, at least 10 pounds in the last couple of months. cc: Carlos Bosch MD
[2019-03-25] MEDS: MIRALAX PO SCH (22:27)
[2019-03-25] MEDS: ROCEPHIN 1 GM in NS 50 ML IV SCH (22:27)
[2019-03-25] MEDS: CRESTOR PO SCH (22:31)
[2019-03-25] MEDS: LOVENOX SUBQ SCH (22:31)
[2019-03-26] MEDS: DUONEB (A & A) INH SCH ×4 (05:26→21:15)
[2019-03-26] MEDS: SYNTHROID PO SCH (06:23)
[2019-03-26] MEDS: BROVANA NEB INH SCH ×2 (08:20→21:15)
--- NOTE | 2019-03-26 09:30 | PROGRESS NOTE ---
DATE: 03/26/2019 SUBJECTIVE: This patient is feeling better. She is still complaining of some shortness of breath. She is still wheezing bilaterally and having a lot of cough. She is bacteremic with Klebsiella pneumoniae, which is sensitive to levofloxacin, so I will switch it. She does not have any kind of metal or prosthesis in her body, no pacemaker either, so I discussed the case with Infectious Disease Department, and they have recommended to complete treatment for 14 days, being day #1 on 03/24/2019. I do believe this patient can be discharged in the next 24 to 48 hours with levofloxacin p.o. OBJECTIVE: Vital Signs: Temperature 98 degrees, pulse 84, respiratory rate 16, blood pressure 172/68, oxygen saturation 97% on 2 L of nasal cannula. HEENT: Head normocephalic. No trauma. PERRLA. Neck: Supple. No JVD. No masses. Central trachea. Chest: Coarse breath sounds bilaterally with expiratory wheezing, decreased breath sounds bilaterally, a prolonged expiratory phase, some rhonchi at the bases, scattered. Abdomen: Soft, nontender, nondistended. No hepatosplenomegaly. Extremities: No edema, no clubbing, no cyanosis. Decreased muscle mass. Neurological: The patient is alert. She is oriented x3. No focal deficits. LABORATORY DATA: WBC 6.4, hemoglobin 12.3, hematocrit 41.6, platelets 213,000. Sodium 144, potassium 4.1, chloride 100, bicarbonate 35, BUN 15, creatinine 0.5, glucose 109, calcium 9.1. ASSESSMENT AND PLAN: 1. Chronic obstructive pulmonary disease exacerbation. Continue with the same management. She is on steroids, which I will decrease today to 40 intravenously daily, and hopefully tomorrow we will put this patient on oral treatment, but if she is feeling better, probably she can go home. She does have a right lower lobe pneumonia. 2. Klebsiella pneumoniae bacteremia. Continue with antibiotics. I have switched the treatment from ceftriaxone to levofloxacin. Her second blood culture is negative, and it has been done on 03/24/2019. The bacteria is sensitive to levofloxacin. I discussed the case with Infectious Disease Department, and she will be discharged home hopefully in the next 24 to 48 hours, once her breathing issues are better, to complete 14 days of treatment with levofloxacin by mouth. 3. Urinary tract infection due to Klebsiella pneumonia as well. Basically, she is asymptomatic. Continue with the same management. 4. Right lower lobe pneumonia. Continue with antibiotics. Sputum culture has been negative. I have switched the treatment to levofloxacin. 5. Acute on chronic hypoxemic and hypercarbic respiratory failure, stable. She is on home oxygen, around 3 liters. Continue with the same management for now. 6. Hypothyroidism. Continue with the same management. 7. Hyperlipidemia. Aware. 8. Severe protein calorie malnutrition. As per the patient's daughter, she has been losing some weight, at least 10 pounds in the past couple months. Overall, this patient is getting better. She is still having wheezing, cough, and shortness of breath. I do believe she can stay for 1 or 2 more days, and she can be discharged home with oral levofloxacin. She is bacteremic with Klebsiella pneumonia. As per the patient, she does not have any kind of metal or pacemaker. She needs to complete 14 days of treatment, starting on 03/24/2019. cc: Carlos Bosch MD
[2019-03-26] MEDS: MIRALAX PO SCH ×2 (09:33→20:57)
[2019-03-26] MEDS: LEVAQUIN 500 MG/D5W 500 MG/100 ML IVPB IV SCH (09:36)
[2019-03-26] MEDS: MUCINEX PO SCH ×2 (09:36→20:56)
[2019-03-26] MEDS: ZOLOFT PO SCH (09:37)
[2019-03-26] MEDS: SOLU-MEDROL IV SCH (12:50)
[2019-03-26] MEDS: CRESTOR PO SCH (20:56)
[2019-03-26] MEDS: LOVENOX SUBQ SCH (21:04)
[2019-03-26] MEDS ORDERED: BROVANA NEB ONE (21:15)
[2019-03-27] MEDS: DUONEB (A & A) INH SCH ×2 (03:25→09:28)
[2019-03-27 05:05] LABS: BASO# 0.01 X1000 (0.0-0.2); BASO% 0.1 % (0.0-0.8); EOS# 0.12 X1000 (0.0-0.7); EOS% 1.7 % (0.0-10.0); HEMATOCRIT 42.1 % (37.0-47.0); HEMOGLOBIN 12.3 g/dL (12.0-16.0); LYMPH# 1.73 X1000 (1.2-3.4); LYMPH% 23.9 % (20.5-51.1); MCH 29.9 PG (27-31); MCHC 29.2 g/dL (33-37); MCV 102.2 FL (81-99); MONO# 0.58 X1000 (0.11-0.59); MPV 9.9 FL (7.4-10.4); NEUT# 4.81 X1000 (1.4-6.5); NEUT% 66.3 % (42.2-75.2); PLT 222 X1000 (130-400); RBC 4.12 XMIL (4.2-5.4); RDW 13.5 % (11.5-14.5); WBC 7.25 X1000 (4.8-10.8)
[2019-03-27 05:34] LABS: ESTIMATED GFR > 60
[2019-03-27] MEDS: SYNTHROID PO SCH (06:07)
[2019-03-27 06:46] LABS: AGAP 9; BUN 14 mg/dL (8-22); CHLORIDE 99 mmol/L (98-107); COSMO 276; CREATININE 0.7 mg/dL (0.5-0.9); GLUCOSE 94 mg/dL (70-104); POTASSIUM 4.1 mmol/L (3.5-5.1); SODIUM 146 mmol/L (136-145); TCO2 38 mmol/L (25-35)
[2019-03-27 08:39] VITALS: BP 120/46
[2019-03-27] MEDS: BROVANA NEB INH SCH (09:28)
[2019-03-27] MEDS: LEVAQUIN 500 MG/D5W 500 MG/100 ML IVPB IV SCH (09:42)
[2019-03-27] MEDS: SOLU-MEDROL IV SCH (09:46)
[2019-03-27] MEDS: MIRALAX PO SCH (09:46)
[2019-03-27] MEDS: MUCINEX PO SCH (09:49)
[2019-03-27] MEDS: ZOLOFT PO SCH (09:49)
[2019-03-27] MEDS ORDERED: FLU VACCINE IM ONE (12:31)
--- NOTE | 2019-03-28 09:48 | DISCHARGE SUMMARY ---
ADMISSION DATE: 03/21/2019 DISCHARGE DATE: 03/27/2019 PERTINENT STUDIES: Initial chest x-ray with evidence of COPD but no acute process. CT chest with basilar atelectasis but otherwise largely unremarkable. White count remained within normal limits. DISCHARGE DIAGNOSES: 1. Chronic obstructive pulmonary disease exacerbation. 2. Pneumonia. 3. Klebsiella pneumoniae bacteremia number. 4. Urinary tract infection due to Klebsiella pneumoniae. 5. Acute on chronic hypoxemic respiratory failure. 6. Chronic hypercapnic respiratory failure. 7. Hypothyroidism. 8. Hyperlipidemia. 9. Malnutrition. HOSPITAL COURSE: The patient presented initially with complaints of progressive dyspnea for approximately 1 week, initially with exertion, but later at rest. Also had a nonproductive cough and subjective fever and chills. Initial evaluation was suggestive of COPD exacerbation with wheezing and decreased air entry. She also had crackles at the right base. Chest x-ray did not really show anything, but followup CT was obtained which showed a possible tiny infiltrate in the right lower lobe, which was thought to possibly be pneumonia. She was started on antibiotics with Rocephin and azithromycin. Blood cultures were obtained and came back Klebsiella pneumoniae, which was resistant only to ampicillin. She was transitioned to Levaquin. She was given IV steroids and DuoNeb. Patient improved slowly. On the day of discharge, was essentially back to baseline. Her repeat blood cultures remain negative so she was transitioned to oral Levaquin to discharge home. Steroids were weaned over the course of the hospitalization. She was discharged home on Medrol Dosepak. Urine culture also grew Klebsiella with the same resistance pattern. The patient's O2 saturation was as low as 87, but on discharge, she was saturating in the mid-to-high 90s on her home 3 L. Initial ABG showed a pCO2 of 66 with a normal pH so this was felt to be at or near her baseline of for hypercapnia. As patient was essentially back to baseline, she was discharged home to finish a 2 week course of oral Levaquin. DISCHARGE VITAL SIGNS: Temperature 98.1 degrees, pulse 78, respirations 18, blood pressure 120/46, O2 saturation 96% on 3 L by nasal cannula. DISCHARGE DIET: Regular. DISCHARGE MEDICATIONS: 1. Crestor 10 mg p.o. at bedtime. 2. DuoNeb b.i.d. as needed. 3. Pulmicort q.12 hours. 4. Synthroid 75 mcg daily. 5. Albuterol inhaler as needed. 6. Zoloft as previously prescribed. 7. Levaquin 750 mg p.o. daily for an additional 10 days to finish a 2 week course. 8. Medrol Dosepak as directed. FOLLOWUP AND PLAN: Patient discharging home on oral Levaquin and Medrol Dosepak to follow up with PCP. Patient to return to care if she has recurrent fevers or if breathing worsens again. TIME SPENT: Greater than 30 minutes spent arranging discharge and counseling patient.
== END 2019-03-27 13:32 | disposition home or self-care (01) | DRG 193 ==
LOC: ED 16:58 → 1N 22:11 → SUATTDRO 22:11
PROVIDERS: ATTEND Internal Medicine